=== PATIENT | male | born 1955 ===

== ENCOUNTER 2022-08-30 01:34 | Outpatient (RCR) | payer MEDICARE, SELFPAY ==
[2022-08-24 08:32] LABS: HCT 28.1 % (40.0-50.0); HGB 9.5 g/dL (13.5-17.5); MCHC 33.8 % (32.0-36.0); MCV 92 fL (80-95); MPV 11.9 fL (8.0-11.0); RBC 3.06 10^6/uL (4.36-5.78); RDW 17.4 % (11.8-14.1); RDW-SD 57.3 fL
[2022-08-24 08:44] LABS: ALT 45 U/L (16-63); AST 24 U/L (15-37); Alkaline Phosphatase 124 U/L (46-116); Anion Gap 4.7 mmol/L (3-11); BUN 39 mg/dL (7-18); Bilirubin, Total 0.7 mg/dL (0.2-1.0); CO2 26.3 mmol/L (21.0-32.0); CREATININE 2.3 mg/dL (0.70-1.30); Calcium 8.8 mg/dL (8.5-10.1); Chloride 106 mmol/L (98-107); Estimated GFR 29.99 (mL/min/1.73m2); Glucose 176 mg/dL (74-106); Potassium 5.1 mmol/L (3.5-5.1); Sodium 137 mmol/L (136-145); Total Protein 5.8 g/dL (6.4-8.2)
[2022-08-24 08:46] LABS: Platelet Count 56 10^3/uL (130-400)
[2022-08-24 08:47] LABS: Absolute Eosinophil Count 0.18 10^3/uL (0.0-0.7); Absolute Lymphocyte Count 0.05 10^3/uL (1.2-3.4); Absolute Monocyte Count 0.11 10^3/uL (0.1-0.8); Absolute Neutrophil Count 0.91 10^3/uL (1.2-6.7); Atypical Lymphocytes % 0; Bands % 0; Diff Comment Manual Differential; Myelocytes % 1
[2022-08-24 08:52] LABS: Burr Cells (echinocyte) 2+
[2022-08-24 09:01] LABS: WBC 1.26 10^3/uL (4.4-10.8)
[2022-08-27 08:25] LABS: HGB 7.8 g/dL (13.5-17.5); MCH 31.1 pg (27.0-33.0); MCHC 33.9 % (32.0-36.0); MCV 92 fL (80-95); Platelet Count 63 10^3/uL (130-400); RBC 2.51 10^6/uL (4.36-5.78); RDW 17.4 % (11.8-14.1); RDW-SD 57.7 fL
[2022-08-27 08:56] LABS: Absolute Basophil Count 0.04 10^3/uL (0.0-0.2); Absolute Eosinophil Count 0.04 10^3/uL (0.0-0.7); Absolute Lymphocyte Count 0.11 10^3/uL (1.2-3.4); Absolute Monocyte Count 0.13 10^3/uL (0.1-0.8); Burr Cells (echinocyte) 2+; Diff Comment Manual Differential
[2022-08-27 09:00] VITALS: BP 129/73; PULSE 70; RESP 18; TEMP 36.3; O2SAT 99
[2022-08-27 09:01] LABS: WBC 1.81 10^3/uL (4.4-10.8)
[2022-08-27] MEDS: Normal Saline Flush 10 ML SYR IVP (10:52)
== END 2022-09-18 23:59 | disposition home or self-care (01) ==
LOC: INF 01:34
PROVIDERS: Visit Provider Internal Medicine
DX: C90.00 Multiple myeloma not having achieved remission (principal)
CPT/HCPCS: 36415; 80053; 86850; 86900; 86901; 86920; 85025; 86860; 86870; 86880